=== PATIENT | female | born 1945 | race Caucasian/White ===

== ENCOUNTER 2020-05-06 15:13 | Emergency (ER) | payer MEDICARE, OTHER, SELFPAY ==
--- NOTE | ~2020-05-06 | XR_ITS ---
EXAMINATION: XR ribs RT 2V w CXR 2V DATE: 05/06/2020 15:59 INDICATION: Anterior right rib pain post fall TECHNIQUE: PA and lateral views of the chest and 3 views of the right ribs were obtained. COMPARISON: Chest radiograph dated 03/17/2014 and 07/13/2006 FINDINGS: Minimally displaced anterior right second and third rib fractures. Lungs are clear with no focal airs pace opacities, pulmonary edema, pleural effusion or pneumothorax. Cardiomediastinal silhouette is no rmal. Calcified right hilar lymph node consistent with old granulomatous disease. Moderate thoracic s pondylosis. Instrumented posterior spinal fusion at the cervicothoracic junction with bilateral verti paul rods and lateral mass and pedicle screw fixation. Moderate osteoarthritis at the bilateral should ers with suture anchor at the right humeral head likely related to prior rotator cuff repair. IMPRESSION: 1. Minimally displaced anterior right second and third rib fractures. No acute cardiopulmonary diseas e. Reviewed, dictated and finalized at location A. IMPRESSION: 1. Minimally displaced anterior right second and third rib fractures. No acute cardiopulmonary disease.
[2020-05-06 15:18] VITALS: BP 139/96; PULSE 77; RESP 18; TEMP 36.5; O2SAT 99
[2020-05-06] MEDS: TETANUS,DIPHTHERIA,AC PERTUSSIS ADULT (0.5 ML) BOOSTRIX IM (15:46)
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
[2020-05-06 18:00] VITALS: BP 129/59; PULSE 60; RESP 12; O2SAT 99
== END 2020-05-06 18:05 | disposition home or self-care (01) ==
PROVIDERS: Emergency Provider Emergency Medicine; PCP Internal Medicine
DX: S22.41XA Multiple fractures of ribs, right side, initial encounter for closed fracture (principal); T23.231A Burn of second degree of multiple right fingers (nail), not including thumb, initial encounter; T23.251A Burn of second degree of right palm, initial encounter; J45.909 Unspecified asthma, uncomplicated; E11.9 Type 2 diabetes mellitus without complications; E78.00 Pure hypercholesterolemia, unspecified; I10 Essential (primary) hypertension; Z23 Encounter for immunization; T31.0 Burns involving less than 10% of body surface; W18.09XA Striking against other object with subsequent fall, initial encounter; X03.8XXA Other exposure to controlled fire, not in building or structure, initial encounter
CPT/HCPCS: 71046; 71100; 90471; 90715; 99283; A9270

== ENCOUNTER → 2021-02-28 14:44 | Outpatient (CLI) | payer MEDICARE, OTHER, SELFPAY ==
--- NOTE | ~2021-02-28 | MM_ITS ---
EXAMINATION: MM screening galen BI w brittny HISTORY: Screening TECHNIQUE: Craniocaudal and mediolateral oblique 3-D tomosynthesis images were obtained and synthetic 2-D images were generated. CAD analysis was submitted and interpreted. COMPARISON: Comparison to multiple prior studies sequentially, with oldest reviewed study dated 06/02. BREAST PARENCHYMAL COMPOSITION: There are scattered areas of fibroglandular density. FINDINGS: There is no evidence of suspicious mass, calcification, or architectural distortion to sugg est malignancy in either breast. There has been no suspicious interval change. IMPRESSION: 1. No mammographic evidence of malignancy. 2. Recommend routine screening mammography in one year. BI-RADS Category 1: Negative Reviewed, dictated and finalized at location A.
== END ==
PROVIDERS: PCP Internal Medicine; Visit Provider Internal Medicine
DX: Z12.31 Encounter for screening mammogram for malignant neoplasm of breast (principal)
CPT/HCPCS: 77063; 77067

== ENCOUNTER → 2021-04-03 12:36 | Outpatient (CLI) | payer MEDICARE, OTHER, SELFPAY ==
--- NOTE | ~2021-04-03 | CT_ITS ---
EXAMINATION: CT abdomen pelvis w con INDICATION: Postmenopausal bleeding TECHNIQUE: Computed tomographic images of the abdomen and pelvis were obtained after the administrati on of 100 cc of Omnipaque 350 intravenous contrast. The dose-length product (DLP) was 726.75 mGy-cm. Automated exposure control and iterative reconstruction technique were employed. COMPARISON: None available FINDINGS: Minimal dependent atelectasis is present in the lung bases. The heart size is normal. There is a small sliding hiatal hernia. Calcified coronary artery atherosclerosis is noted. Punctate calci fications in an otherwise normal spleen likely represent healed granulomatous disease. The liver, monae creas, gallbladder, and adrenal glands are normal. Cysts of the kidneys measure up to 4.7 cm on the l eft. There is calcified atherosclerosis of the aorta and many of the other arteries. A moderate volum e of colonic stool is present. The appendix is normal. No pathologically enlarged abdominal or pelvic lymph nodes are identified. There is no free intraperitoneal gas or evidence of bowel obstruction. T he uterus appears normal in size. There is severe lumbar spondylosis. IMPRESSION: 1. No CT correlate for the patient's symptoms. Consider correlation with pelvic ultrasound for postme nopausal bleeding if not previously performed. Reviewed, dictated and finalized at location A. IMPRESSION: 1. No CT correlate for the patient's symptoms. Consider correlation with pelvic ultrasound for postmenopausal bleeding if not previously performed.
[2021-04-03 13:04] LABS: Estimated Glomerular Filt Rate 34
== END ==
PROVIDERS: PCP Internal Medicine; Visit Provider Obstetrics & Gynecology
DX: N95.0 Postmenopausal bleeding (principal); M47.816 Spondylosis without myelopathy or radiculopathy, lumbar region; K44.9 Diaphragmatic hernia without obstruction or gangrene
CPT/HCPCS: 74177; Q9967

== ENCOUNTER 2021-10-26 22:29 | Emergency (ER) | payer MEDICARE, OTHER, SELFPAY ==
--- NOTE | ~2021-10-26 | CT_ITS ---
EXAMINATION: CT cervical spine wo con EXAM DATE: 10/26/2021 23:33 INDICATION: Neck pain, fall down steps. TECHNIQUE: Spiral CT of the cervical spine was performed without contrast. Axial images were reviewe d. Coronal and sagittal reformatted images cervical spine were also reviewed. The dose-length produc t (DLP) for this examination was 229.88 mGy-cm. The exposure was tailored according to patient size (auto mA exposure control), and iterative reconstruction (ASIR) was used as additional dose reduction technique. Comparison is made to prior examination from 03/02/2017. FINDINGS: Intact posterior fusion hardware from C2 through T2. Moderate to severe, but partially fuse d mid cervical discs. Laminectomy C3-C6. The vertebral bodies are aligned in the AP dimension. There are no acute fractures identified. The od ontoid process is intact. The lateral masses of C1 line up with C2. Prevertebral soft tissue and pre -dens space are within normal limits. IMPRESSION: 1. Intact cervical thoracic fusion hardware. 2. Spondylosis without acute fracture. Reviewed, dictated and finalized at location A. ICAL INSTRUMENT MECHANIC
--- NOTE | ~2021-10-26 | XR_ITS ---
EXAMINATION: XR hip BI 2V w AP pelvis EXAM DATE: 10/26/2021 23:53 INDICATION: TECHNIQUE: Each hip imaged independently (separate right and also left hip) 'frog leg' and frontal p rojections for interpretation. Frontal projection pelvis. There is no prior study for comparison. FINDINGS: No radiographic evidence of hip avascular necrosis. There is moderate symmetric bilatera l hip primary osteoarthritis. There are no acute fractures or dislocations identified. There is no s ubcutaneous gas. The soft tissue is unremarkable. There are no radiopaque foreign bodies. IMPRESSION: No acute osseous findings. Reviewed, dictated and finalized at location A. MENDER IMPRESSION: No acute osseous findings.
--- NOTE | ~2021-10-26 | CT_ITS ---
EXAMINATION: CT brain wo [facility] EXAM DATE: 10/26/2021 23:33 INDICATION: Head injury, fall down steps . TECHNIQUE: Spiral CT of the head was performed without contrast. Axial, coronal and sagittal images were reviewed. The dose-length product (DLP) for this examination was 605.33 mGy-cm. The exposure w as tailored according to patient size, and iterative reconstruction (ASIR) was used as additional dos e reduction technique. Comparison is made to prior examination from 03/02/2017. FINDINGS: There is no acute intraparenchymal hemorrhage. No evidence of intraparenchymal brain mass lesion. No evidence of acute infarction. Please note that initial head CT has limited sensitivity f or small or acute infarctions. There is mild periventricular and subcortical hypodensity, nonspecific but probably related to small vessel ischemic disease. There is moderate prominence of the sulci a nd ventricles related to cerebral atrophy. There is intracranial carotid arteriosclerosis. There a re no extra-axial collections. There is no mass effect or midline shift. Patient has had bilateral ocular lens surgery. Soft tissue is unremarkable. The visualized sinuses and mastoid air cells are well aerated. IMPRESSION: 1. No acute intracranial findings. 2. Chronic age related findings. Reviewed, dictated and finalized at location A. IGN CAR MECHANIC
--- NOTE | ~2021-10-26 | XR_ITS ---
EXAMINATION: XR knee RT min 4V EXAM DATE: 10/26/2021 23:54 INDICATION: Right knee pain/ bleeding to leg . TECHNIQUE: Right knee frontal, crosstable lateral, orthogonal oblique projections for interpretation . There is no prior study for comparison. FINDINGS: No evidence osteochondral defect or joint body in the right knee joint. No joint effusio n. There is mild to moderate primary osteoarthritis. Meniscal calcification, chondrocalcinosis. Ther e are no acute fractures identified. IMPRESSION: No acute right knee fracture. Reviewed, dictated and finalized at location A. OMER SUPPORT MANAGER
--- NOTE | ~2021-10-26 | CT_ITS ---
EXAMINATION: CT thoracic lumbar wo con DATE: 10/26/2021 23:33 INDICATION: Back pain post fall down steps. TECHNIQUE: Computed tomography (CT) of the thoracic and lumbar spine was performed without intravenou s contrast. Automated exposure control and iterative reconstruction technique were employed. The dos e-length product was 1843.5 mGy-cm. COMPARISON: CT abdomen and pelvis dated 04/03/[address] cervical spine dated 03/02/2017 FINDINGS: Thoracic spine: Inferior aspect of the cervicothoracic instrumented posterior spinal fusion is seen with bilateral pe dicle screws at T1 and T2 and bilateral vertical rods extending cephalad into the cervical spine and beyond the cephalad margin of the [id number]. Alignment is normal. Unchanged chronic minimal anter ior wedging at T1. Remaining thoracic vertebral body heights are normal. No fracture identified. Leonor re disc height loss at T2-T3, T3-T4, T7-T8 and T8-T9. Moderate disc height loss at T4-T5 through T6-T 7 and at T9-T10 and T10-T11. Mild disc height loss at T1-T2 and T11-T12. Mild to moderate multilevel bilateral thoracic facet osteoarthritis. There is mild neural foraminal stenosis most prominent on th e left at T2-T3 and T10-T11 and on the right at T2-T3 through T4-T5 and at T8-T9. Ossification of the ligamentum flavum resulting in mild central canal stenosis at T10-T11 and T11-T12. There are a few s mall disc protrusions resulting in minimal central canal stenosis at a few additional levels in the m ore cephalad thoracic spine. Paravertebral soft tissues are unremarkable. Mild emphysema. Calcified n odules in the right lower lobe along with calcified right hilar and mediastinal lymph nodes consisten t with old granulomatous disease. Thoracic aorta is normal in caliber. Atherosclerotic coronary arter y calcification. No pericardial or pleural effusion. Lumbar spine: Mild lower lumbar dextrocurvature. 2 mm anterolisthesis L5 on S1. Vertebral body heights are normal. No fracture. Severe disc height loss at L4-L5 and L5-S1, moderate disc height loss at L3-L4. A couple prominent but incompletely visualized left renal cysts. Atherosclerotic abdominal aorta. Moderate bi lateral sacroiliac osteoarthritis. 4 x 4 x 1 cm lenticular density posterior to the left posterior il iac spine likely representing a subcutaneous hematoma. The following disc levels are specifically dis cussed: T11-T12: Disc is bulging. There is hypertrophy of the ligamentum flavum. There is severe bilateral fa cet joint osteoarthritis. There is mild bilateral neural foraminal stenosis. There is mild central ca nal stenosis. T12-L1: Posterior disc osteophyte complex. There is hypertrophy of the ligamentum flavum. There is mi ld to moderate bilateral facet joint osteoarthritis. There is minimal bilateral neural foraminal sten osis. There is mild central canal stenosis. L1-L2: Disc is mildly bulging. There is hypertrophy of the ligamentum flavum. There is moderate bilat eral facet joint osteoarthritis. There is mild bilateral neural foraminal stenosis. There is mild kurtis tral canal stenosis. L2-L3: Disc is bulging. There is hypertrophy of the ligamentum flavum. There is severe bilateral fac et joint osteoarthritis. There is mild bilateral neural foraminal stenosis. There is severe central c anal stenosis. L3-L4: Disc is bulging. There is severe bilateral facet joint osteoarthritis. There is moderate bilat eral neural foraminal stenosis. There is moderate central canal stenosis. L4-L5: Disc is bulging. There is severe left and moderate right facet joint osteoarthritis. Suggestio n of possible prior bilateral hemilaminotomies. There is moderate bilateral, left greater than right neural foraminal stenosis. There is no central canal stenosis. L5-S1: Posterior disc osteophyte complex. There is moderate right and severe left facet joint osteoar thritis. There is moderate right and mo
--- NOTE | ~2021-10-26 | XR_ITS ---
EXAMINATION: XR chest 2V EXAM DATE: 10/26/2021 23:55 INDICATION: Fall, back pain. History of asthma. TECHNIQUE: Frontal and lateral projections of the chest obtained and reviewed. Comparison is made to prior examination from 05/06/2020. FINDINGS: The lungs are clear. There are no pleural effusions. The cardiomediastinal silhouette is within normal limits. There is no pneumothorax suspected. There are bony degenerative changes. Cerv ical thoracic fusion hardware. IMPRESSION: No acute cardiopulmonary findings. Reviewed, dictated and finalized at location A. PACKER AND SEALER
[2021-10-26 22:46] VITALS: BP 146/97; PULSE 97; RESP 16; O2SAT 98
[2021-10-26 23:03] VITALS: RESP 16; O2SAT 98
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
[2021-10-27] MEDS: HYDROcodone/acetaminophen (*CRX) 5-325 MG TABLET 1 TAB PO (00:11)
[2021-10-27 00:39] VITALS: BP 129/72; PULSE 97; RESP 16; O2SAT 97
== END 2021-10-27 00:43 | disposition home or self-care (01) ==
PROVIDERS: Emergency Provider Emergency Medicine
DX: S09.90XA Unspecified injury of head, initial encounter (principal); S80.01XA Contusion of right knee, initial encounter; J45.909 Unspecified asthma, uncomplicated; E11.9 Type 2 diabetes mellitus without complications; Z79.84 Long term (current) use of oral hypoglycemic drugs; E78.00 Pure hypercholesterolemia, unspecified; I10 Essential (primary) hypertension; M47.812 Spondylosis without myelopathy or radiculopathy, cervical region; M47.814 Spondylosis without myelopathy or radiculopathy, thoracic region; M47.816 Spondylosis without myelopathy or radiculopathy, lumbar region; W10.9XXA Fall (on) (from) unspecified stairs and steps, initial encounter
CPT/HCPCS: 70450; 71046; 72125; 72128; 72131; 73521; 73564; 99284; A9270

== ENCOUNTER 2022-09-09 13:41 | Emergency (ER) | payer MEDICARE, OTHER, SELFPAY ==
--- NOTE | ~2022-09-09 | XR_ITS ---
XR knee RT min 4V DATE: 09/09/2022 18:16 INDICATION: Anterior knee pain following a fall TECHNIQUE: 4 views COMPARISON: 10/26/2021 right knee FINDINGS: Chondrocalcinosis is noted at the medial and lateral compartments. No fracture or dislocation or joint effusion, periosteal reaction or bone destruction is detected. Superior pole patellar enthesopathy. There is periarticular spurring at the patellofemoral joint cons istent with osteoarthritis. IMPRESSION: Chondrocalcinosis Mild osteoarthritis Reviewed, dictated and finalized at location A.
--- NOTE | ~2022-09-09 | XR_ITS ---
XR hip BI 2V w AP pelvis DATE: 09/09/2022 18:18 INDICATION: Hip pain following fall TECHNIQUE: AP pelvis. AP and lateral views of each hip. COMPARISON: None FINDINGS: Levoscoliosis and multilevel degenerative disc disease of the lumbar spine, involving parti cularly L4-5 and L5-S1. The pubic symphysis and sacroiliac joints are normally aligned. No pelvic fracture or bone destructio n. No fracture or dislocation, avascular necrosis or bone destruction of either hip is evident. IMPRESSION: Levoscoliosis and degenerative disease of lumbar spine No pelvic or hip fracture Reviewed, dictated and finalized at location A.
--- NOTE | ~2022-09-09 | XR_ITS ---
XR knee LT min 4V DATE: 09/09/2022 18:16 INDICATION: Anterior knee pain following a fall TECHNIQUE: 4 views COMPARISON: None FINDINGS: No fracture or dislocation is detected. No periosteal reaction or bone destruction. There is chondrocalcinosis at the medial and lateral compartments. IMPRESSION: Chondrocalcinosis Reviewed, dictated and finalized at location A. IMPRESSION: Chondrocalcinosis
--- NOTE | ~2022-09-09 | CT_ITS ---
CT thoracic lumbar wo con DATE: 09/09/2022 18:27 INDICATION: Fall. Back pain. TECHNIQUE: Exam dose: 1070.66 mGy-cm total exam DLP. Axial images through the lower cervical, thoracic and upper and mid lumbar spine, with sagittal and c oronal reconstructions COMPARISON: 10/26/2021 CT thoracic and lumbar spine FINDINGS: Pedicle screws and rods are noted bilaterally in the lower cervical spine and T1-T2. There is degenerative spurring throughout the lower cervical and thoracic spine. No fracture or dislo cation of the included lower cervical spine, thoracic or upper mid lumbar spine is noted. Incidentally noted is emphysema. Small sliding hiatal hernia. Left renal cysts. IMPRESSION: Extensive degenerative changes of the lower cervical and thoracic and upper lumbar spine Status post posterior surgical fusion at the lower cervical spine through T2 No recent fracture or dislocation is detected Reviewed, dictated and finalized at [facility]. Reviewed, dictated and finalized at location A. IMPRESSION: Extensive degenerative changes of the lower cervical and thoracic a nd upper lumbar spine Status post posterior surgical fusion at the lower cervical spine through T2 No recent fracture or dislocation is detected
--- NOTE | ~2022-09-09 | XR_ITS ---
XR chest 2V DATE: 09/09/2022 18:17 INDICATION: Fall TECHNIQUE: AP and lateral views COMPARISON: 10/26/2021 AP and lateral chest FINDINGS: Normal heart size. There is mild aortic unfolding. No hilar or mediastinal enlargement. No pulmonary infiltrate or consolidation, pleural effusion or pulmonary vascular congestion or pneumotho rax. Degenerative change at the acromioclavicular and glenohumeral joints and degenerative spurring of the thoracic spine. Status post cervical and upper thoracic spine posterior surgical fusion. IMPRESSION: No active disease or significant change since 10/26/2021 Reviewed, dictated and finalized at location A.
[2022-09-09 14:23] VITALS: BP 130/92; PULSE 78; RESP 16; TEMP 36.7; O2SAT 100
--- NOTE | 2022-09-09 17:36 | ED.FALL ---
HPI - Fall General Chief Complaint: Fall <Shaista Herring PA-C - Last Filed: 09/09/22 20:26> Stated Complaint: left flank pain, knee pain following fall <RICHY rBody Last Filed: 09/09/22 20:26> Time Seen by Provider: 09/09/22 16:58 <RICHY Brody Last Filed: 09/09/22 20:26> Source: patient <RICHY Brody Last Filed: 09/09/22 20:26> Mode of arrival: ambulatory <RICHY Brody Last Filed: 09/09/22 20:26> Limitations: no limitations <RICHY Brody Last Filed: 09/09/22 20:26> History of Present Illness HPI Narrative: This is a 76-year-old female that presents to the emergency department after a ground-level fall 5 days ago with knee pain and back pain. Reports she missed the last step going into the garage. Reports falling forward and landing on her knees. Reports that she has had bilateral knee pain and mid to low back pain. Worse with movement and relieved with rest. Denies hitting her head or loss of consciousness. Denies decreased range of motion or numbness. <Shaista Herring PA-C - Last Filed: 09/09/22 20:26> Related Data Home Medications: Home Medications Medication Instructions Recorded Confirmed gabapentin 600 mg tablet 600 mg PO TID 04/10/21 glimepiride 2 mg tablet 2 mg PO QAM 04/10/21 pantoprazole 40 mg tablet,delayed 40 mg PO QAM 04/10/21 release sertraline 50 mg tablet 40 mg PO DAILY 04/10/21 <RICHY Brody Last Filed: 09/09/22 20:26> Allergies/Adverse Reactions: Allergies Allergy/AdvReac Type Severity Reaction Status Date / Time No Known Allergies Allergy Verified 09/09/22 14:26 <RICHY Brody Last Filed: 09/09/22 20:26> Review of Systems Review of Systems: CONSTITUTIONAL: Denies fever GASTROINTESTINAL: Denies abdominal pain, nausea, vomiting MUSCULOSKELETAL: Reports back pain, joint pain, and myalgia. NEUROLOGIC: Denies numbness, or weakness. <Shaista Herring PA-C - Last Filed: 09/09/22 20:26> All systems reviewed & are unremarkable except as noted in HPI and below <Shaista Herring PA-C - Last Filed: 09/09/22 20:26> [facility] Past Medical History Medical History: Medical History (Updated 09/09/22 @ 20:18 by Shaista Herring PA-C) Anxiety Asthma Depression Diabetes type 2, controlled Hypercholesterolemia Hypertension <Shaista Herring PA-C - Last Filed: 09/09/22 20:26> Surgical History Surgical History: Surgical History (Updated 05/06/20 @ 17:42 by John Mosquera MD) History of appendectomy History of carpal tunnel release History of tonsillectomy History of tubal ligation <Shaista Herrnig PA-C - Last Filed: 09/09/22 20:26> Social History Social History: Social History (Updated 04/10/21 @ 15:37 by Charisse Ryan) Smoking status: Never smoker Alcohol intake: never Gender identity (if verbalized by the patient): Female <Shaista Herring PA-C - Last Filed: 09/09/22 20:26> Exam Narrative: GENERAL: Well-appearing, well-nourished, and in no acute distress. HEAD: Normocephalic, atraumatic. EYES: PERRLA and EOMI. ENT: Nares clear, no rhinorrhea or epistaxis. Mucous membranes moist. Oropharynx without tonsillar hypertrophy exudate or other lesions. Bilateral TMs pearly camp non-bulging NECK: Supple. No adenopathy or masses. No midline cervical spine tenderness CHEST: Clear to auscultation. No respiratory distress. No wheezes rales or rhonchi HEART: Regular rate and rhythm. No murmur heard. Normal peripheral pulses. ABDOMEN: Soft, nontender, nondistended, normal active bowel sounds. BACK: Tender to palpation of midline thoracic and lumbar spine EXTREMITIES: Normal range of motion. No edema or obvious deformity. SKIN: Warm, dry, no rash. NEURO: No focal deficits. Alert and oriented x3. Cranial nerves II through XII grossly intact PSYCH: Normal mood and affect <Shaista Herring PA-C - Last Filed: 09/09/22 20:26> [facility]
--- NOTE | 2022-09-09 18:19 | PC.NURSE ---
Pt to CT/XRAY via stretcher at this time.
[2022-09-09 18:48] VITALS: BP 142/77; PULSE 75; RESP 15; O2SAT 93
[2022-09-09 19:24] VITALS: BP 150/71; PULSE 62; RESP 17; O2SAT 96
--- NOTE | 2022-09-09 19:24 | PC.NURSE ---
Assumed care of pt at this time. Pt alert and upright on stretcher, updated on POC.
[2022-09-09] MEDS: ACETAMINOPHEN 500 MG TABLET 1000 MG PO (20:14)
[2022-09-09 20:32] VITALS: BP 153/68; PULSE 71; RESP 16; O2SAT 98
== END 2022-09-09 20:00 | disposition home or self-care (01) ==
PROVIDERS: Emergency Provider Emergency Medicine
DX: S39.92XA Unspecified injury of lower back, initial encounter (principal); S89.92XA Unspecified injury of left lower leg, initial encounter; S89.91XA Unspecified injury of right lower leg, initial encounter; J45.909 Unspecified asthma, uncomplicated; E11.9 Type 2 diabetes mellitus without complications; E78.00 Pure hypercholesterolemia, unspecified; I10 Essential (primary) hypertension; F41.9 Anxiety disorder, unspecified; F32.A Depression, unspecified; Z79.84 Long term (current) use of oral hypoglycemic drugs; M11.262 Other chondrocalcinosis, left knee; M11.261 Other chondrocalcinosis, right knee; M17.11 Unilateral primary osteoarthritis, right knee; M51.36 Other intervertebral disc degeneration, lumbar region; M47.812 Spondylosis without myelopathy or radiculopathy, cervical region; M47.814 Spondylosis without myelopathy or radiculopathy, thoracic region; M47.816 Spondylosis without myelopathy or radiculopathy, lumbar region; Z98.1 Arthrodesis status; W10.9XXA Fall (on) (from) unspecified stairs and steps, initial encounter
CPT/HCPCS: 71046; 72128; 72131; 73521; 73564; 99284; A9270

== ENCOUNTER 2023-02-21 16:35 | Emergency (ER) | payer MEDICARE, OTHER, SELFPAY ==
--- NOTE | ~2023-02-21 | XR_ITS ---
XR nasal bones min 3V DATE: 02/21/2023 17:09 INDICATION: Patient fell on face 2 days ago TECHNIQUE: Left and right lateral water views COMPARISON: 03/02/2017 CT facial bones FINDINGS: There is a linear lucency junction of the middle and distal thirds of the nasal bones with slight depression of the distal fragment. Orbital rims and floors appear intact. Frontal and maxillary sinuses and ethmoid air cells appear wel l aerated. Upper and lower radiopaque dental hardware. Status post posterior cervical spine surgical fusion. IMPRESSION: Nasal fracture Reviewed, dictated and finalized at location A. IMPRESSION: Nasal fracture
--- NOTE | 2023-02-21 16:43 | ED.EPISTAXIS ---
HPI - Epistaxis General Chief complaint: Epistaxis Stated complaint: Nose Bleed Due to Fall Time Seen by Provider: 02/21/23 17:00 Mode of arrival: ambulatory Limitations: no limitations History of Present Illness HPI Narrative: 69-year-old female presents with concern for fall 2 days ago. Reports she fell and hit her face, causing nose swelling and nose bleed. Reports the nose bled a lot the day of the fall. Reports she is concerned because today she has been having slight intermittent nose bleed. She reports her nose is slightly painful, slightly congested. She reports she can breathe through both nostrils. She reports the bleeding today was a small amount and did not last very long MD complaint: epistaxis Related Data Home Medications Medication Instructions Recorded Confirmed gabapentin 600 mg tablet 600 mg PO TID 04/10/21 02/21/23 glimepiride 2 mg tablet 2 mg PO QAM 04/10/21 02/21/23 pantoprazole 40 mg tablet,delayed 40 mg PO [facility] 04/10/21 02/21/23 release alprazolam 0.5 mg tablet 0.5 mg PO TID 02/21/23 02/21/23 escitalopram oxalate 20 mg tablet 20 mg PO DAILY 02/21/23 02/21/23 latanoprost 0.005 % eye drops 1 drp EACH EYE 02/21/23 02/21/23 meloxicam 15 mg tablet 15 mg PO DAILY 02/21/23 02/21/23 montelukast 10 mg tablet 10 mg PO HS 02/21/23 02/21/23 quetiapine 150 mg tablet,extended 150 mg PO DAILY 02/21/23 02/21/23 release 24 hr simvastatin 20 mg tablet 20 mg PO DAILY 02/21/23 02/21/23 Allergies Allergy/AdvReac Type Severity Reaction Status Date / Time No Known Allergies Allergy Verified 02/21/23 16:38 Review of Systems Review of Systems: CONSTITUTIONAL: Denies malaise, chills, sweats, or fever. EYES: Denies visual changes ENT: Denies rhinorrhea. Reports sinus congestion, intermittent epistaxis CARDIOVASCULAR: Denies chest pain, palpitations, or edema. RESPIRATORY: Denies cough or dyspnea. GASTROINTESTINAL: Denies abdominal pain, nausea, vomiting, diarrhea, bloody, or mucous stools. GENITOURINARY: Denies dysuria or hematuria. SKIN: Denies open skin, reports bruising to the face and nose NEUROLOGIC: Denies numbness, weakness, or headache. All systems reviewed & are unremarkable except as noted in HPI and below PMFSH Past Medical History Medical History (Updated 02/21/23 @ 17:28 by Veronica Chen NP) Anxiety Asthma Depression Diabetes type 2, controlled Hypercholesterolemia Hypertension Surgical History Surgical History (Updated 05/06/20 @ 17:42 by John Mosquera MD) History of appendectomy History of carpal tunnel release History of tonsillectomy History of tubal ligation Social History Social History (Updated 04/10/21 @ 15:37 by Charisse Ryan) Smoking status: Never smoker Alcohol intake: never Gender identity (if verbalized by the patient): Female Comments At time of signature, agree with nursing past medical, surgical, social and family history. There is no relevant family history pertinent to the presenting complaint Exam Narrative: GENERAL: Well-appearing, well-nourished, and in no acute distress. HEAD: Normocephalic, atraumatic. EYES: PERRLA, sclera clear, and EOMI. ENT: Nares clear, turbinates edematous, no active epistaxis. Mucous membranes moist. NECK: Supple. CHEST: No respiratory distress. Speaks in full sentences. HEART: Regular rate and rhythm. SKIN: Warm, dry. Healing ecchymosis noted below both eyes and the bridge of the nose NEURO: Alert and oriented x3. PSYCH: Normal mood and affect Course Course Emergency Course: Afrin administered to facilitate decrease and turbinate swelling for better examination. Inflammation in the turbinates improved, was able to do a better exam, no septal hematoma noted, no areas of active bleeding noted Patient is aware of diagnosis, understands and agrees to treatment plan. Anticipatory guidance given. Patient agrees to follow-up as directed and is aware of reasons to seek care at the emergency department.
[2023-02-21 16:46] VITALS: BP 151/79; PULSE 82; RESP 16; TEMP 36.9; O2SAT 100
== END 2023-02-21 17:41 | disposition home or self-care (01) ==
PROVIDERS: Emergency Provider Nurse Practitioner
DX: S02.2XXA Fracture of nasal bones, initial encounter for closed fracture (principal); E11.9 Type 2 diabetes mellitus without complications; I10 Essential (primary) hypertension; Z79.1 Long term (current) use of non-steroidal anti-inflammatories (NSAID); W19.XXXA Unspecified fall, initial encounter
CPT/HCPCS: 70160; 99213; A9270; G0463

== ENCOUNTER 2025-10-03 11:03 | Outpatient (CLI) | payer MEDICARE, OTHER, SELFPAY ==
--- NOTE | ~2025-10-03 | CT_ITS ---
EXAMINATION: CT brain wo con DATE: 10/03/2025 11:19 INDICATION: Closed head injury TECHNIQUE: Computed tomography (CT) of the head was performed without intravenous contrast. Sagittal and coronal reconstructions were performed. The mA was adjusted according to patient size. Iterative reconstruction technique was employed. The dose-length product was 529.67 mGy-cm. COMPARISON: head CT dated 10/26/2021 FINDINGS: No fracture. No acute intracranial hemorrhage, acute infarction or abnormal extra axial fluid collection. There is mild scattered white matter hypoattenuation consistent with chronic small vessel ischemic disease. Symmetric prominence of the sulci consistent with mild age-appropriate diffuse cerebral v olume loss. Ventricles are normal and symmetric. No mass/mass effect. Changes of bilateral intraocular lens replacement. Paranasal sinuses are normal. Tiny right mastoid effusion. Hyperostosis frontalis. Intracranial calcified cerebral atherosclerosis is noted. IMPRESSION: 1. No fracture or acute intracranial process. 2. Age-related changes including mild diffuse volume loss and mild scattered white matter hypoattenuation consistent with chronic small vessel ischemic disease. Reviewed, dictated and finalized at location A. [employer]ATING [employer] IMPRESSION: 1. No fracture or acute intracranial process. 2. Age-related changes including mild diffuse volume loss and mild scattered wh ite matter hypoattenuation consistent with chronic small vessel ischemic diseas e.
== END 2025-10-03 11:04 | disposition home or self-care (01) ==
PROVIDERS: PCP Physician Assistant; Visit Provider Physician Assistant
DX: E86.9 Volume depletion, unspecified (principal); G31.1 Senile degeneration of brain, not elsewhere classified; S06.2X0A Diffuse traumatic brain injury without loss of consciousness, initial encounter; X58.XXXA Exposure to other specified factors, initial encounter
CPT/HCPCS: 70450